=== PATIENT | female | born 1935 | race Caucasian/White ===

== ENCOUNTER 2020-12-06 14:46 | Outpatient (RCR) | payer MEDICARE, SELFPAY | END 2020-12-06 23:59 | LOC: IMMUN 14:46 | PROVIDERS: PCP Family Medicine; Visit Provider Family Medicine | DX: Z23 Encounter for immunization (principal) | CPT/HCPCS: 0011A; 0012A; 91301 ==

== ENCOUNTER 2025-08-18 13:05 | Emergency (ER) | payer MEDICARE, SELFPAY ==
[2025-08-18 13:06] VITALS: BP 125/55; PULSE 79; RESP 16; TEMP 36.3; O2SAT 91
--- NOTE | 2025-08-18 14:07 | ED.VIS.FALL ---
HPI HPI - Fall History of Present Illness Chief Complaint: Fall Narrative Narrative: Chief complaint and HPI: 89-year-old female with past medical history of COPD presents with family for evaluation after mechanical fall. Patient states that she had a routine doctor's appointment today in which she tripped and fell onto the carpet. She states she fell onto the right side of her body including her face. No LOC. Not on blood thinners. Patient denies any complaints. States she was told that she needed to be seen by the emergency department before she could be seen for her office appointment. She denies any headache, chest pain, abdominal pain, chest pain, nausea, vomiting, dysuria. States she has baseline shortness of breath. Review of systems: See HPI Medications: As listed on the chart Allergies: As listed on the chart PFSH: Per chart Vital signs: As listed on the chart. Reviewed. Physical exam: Gen: A&O x3, NAD Head: Normocephalic, atraumatic Eyes: No sclera icterus, conjunctiva clear, PERRL, EOMI ENT: TMs clear BL, moist mucous membranes, no swelling/lacerations/blood in the mouth or the nares, No nasal septal hematoma, no facial tenderness although does have small ecchymosis to the right cheek Neck: Trachea midline, No JVD, Nontender, full range of motion CV: RRR, no murmurs, no chest wall TTP Resp: Lungs CTA BL, no w/r/c GI: Abd soft, non-distended, non-tender, no r/r/g Musc: Full ROM of all the extremities, no deformity, no spinal TTP, no woody step-offs, radial pulses +2 bilaterally, DP/PT pulses +2 bilaterally, small area of ecchymosis to the right kneecap without any tenderness Skin: Warm, dry, no laceration Neuro: Alert, oriented, grossly intact, sensation intact, GCS 15 Psych: Cooperative, appropriate mood and affect PFS PFS Allergy/AdvReac Type Severity Reaction Status Date / Time No Known Allergies Allergy Verified 08/18/25 13:10 Social History Smoking Status: Never smoker EXAM Physical Exam Const Vital Signs: 08/18/25 13:06 08/18/25 13:21 Temperature 97.4 F L Temperature Source Temporal Pulse Rate 79 Respiratory Rate 16 Respiratory Effort Normal Respiratory Depth Normal Respiratory Pattern Normal Blood Pressure 125/55 H Blood Pressure Mean 78 Pulse Ox 91 Oxygen Delivery Method Room Air MDM MDM MDM Narrative Medical decision making narrative: 89-year-old female with past medical history of COPD presents with family for evaluation after mechanical fall. Patient states that she had a routine doctor's appointment today in which she tripped and fell onto the carpet. She states she fell onto the right side of her body including her face. No LOC. Not on blood thinners. Patient denies any complaints. States she was told that she needed to be seen by the emergency department before she could be seen for her office appointment. On presentation, patient no acute distress. Vitals are stable. See physical exam findings. Low suspicion for any fracture, acute head trauma. This was purely mechanical fall therefore I do not think any laboratory workup is needed. I do not think any imaging is needed however this was discussed extensively with patient as well as family members. Everybody in agreement with no CT imaging or x-rays. Patient ambulated in the emergency department without difficulty. Patient stable to discharge home. Return precautions explained. Impression: 1. Mechanical fall 2. Right cheek contusion 3. Right knee contusion Discharge Plan Triage Chief Complaint: Fall ED Provider: Reji Gordillo Dx/Rx/DC Orders Primary Care Provider: Mary Arrington Referrals: Mary Arrington DO [Primary Care Provider, Family Practice] Print Language: Greek
[2025-08-18 14:38] VITALS: BP 120/60; PULSE 71; RESP 14; TEMP 36.6; O2SAT 92
== END 2025-08-18 14:20 | disposition home or self-care (01) ==
PROVIDERS: Emergency Provider Surgery; PCP Family Medicine; Visit Provider Surgery
DX: S00.83XA Contusion of other part of head, initial encounter (principal); J44.9 Chronic obstructive pulmonary disease, unspecified; S80.01XA Contusion of right knee, initial encounter; W01.0XXA Fall on same level from slipping, tripping and stumbling without subsequent striking against object, initial encounter
CPT/HCPCS: 99282